=== PATIENT | male | born 1970 | race Caucasian/White ===

== ENCOUNTER 2016-12-11 09:26 | Inpatient (IN) | payer MEDICAID, OTHER ==
[~2016-12-11] VITALS: Ht 185.4 cm; Wt 75.9 kg
[~2016-12-11 09:26] MED LIST: ATEN1TAB38; LORAPOW30; PROZAC; SEROQUEL
[2016-12-11] MEDS ORDERED: SODIUM CHLORIDE 0.9% 1,000 ML IVB ONE (11:44)
[2016-12-11] MEDS ORDERED: PROMETHAZINE HCL 25 MG/ML 1ML IV ONE (11:45)
[2016-12-11 12:19] LABS: Basophils # (auto) 0 uL; Basophils % (auto) 0.2 % (0.0-2.0); Eosinophils # (auto) 0.1 uL; Eosinophils % (auto) 0.4 % (0.0-7.0); Hematocrit 50.5 % (41.0-53.0); Hemoglobin 16.5 g/dL (13.5-17.5); Lymphocytes # (auto) 1.5 uL; Lymphocytes % (auto) 10.1 % (10.0-50.0); Mean Corpuscular Hemoglobin 32.5 pg (28.0-32.0); Mean Corpuscular Hgb Conc. 32.7 g/dL (32.0-36.0); Mean Corpuscular Volume 99.6 fL (80.0-100.0); Mean Platelet Volume 9.7 fL (7.4-10.4); Monocytes # (auto) 0.8 uL; Monocytes % (auto) 5.6 % (0.0-12.0); Neutrophils # (auto) 12.1 uL; Neutrophils % (auto) 83.7 % (37.0-80.0); Platelet Count (auto) 181 10^3/uL (140-450); Red Cell Distribution Width 13.5 % (11.6-16.0); SUSPECT VIEW TRANSMISSION; White Blood Cell 14.5 10^3/uL (4.4-10.8)
[2016-12-11 12:55] LABS: Albumin 4.2 g/dL (3.4-5.0); BUN/Creatinine Ratio 20.9; Bilirubin, Total 4.7 mg/dL (0.2-1.0); Calcium 9.6 mg/dL (8.5-10.1); Magnesium 1.7 mg/dL (1.6-2.6); Potassium 3.6 mmol/L (3.5-5.1); Total Protein 7.9 g/dL (6.4-8.2)
[2016-12-11] MEDS ORDERED: PROMETHAZINE HCL 25 MG/ML 1ML IV PRN (17:00)
[2016-12-11] MEDS ORDERED: LORazepam 0.5 MG TAB PO PRN ×2 (17:00→20:30)
[2016-12-11] MEDS ORDERED: cefTRIAXone 1GM/50ML D5W 50 ML IV ONE (17:00)
[2016-12-11] MEDS ORDERED: MORPHINE SULF INJ 2 MG/ML SYRINGE 1ML IV PRN (17:00)
[2016-12-11] MEDS ORDERED: NITROGLYCERIN 0.4 MG SL TAB SL PRN (17:00)
[2016-12-11] MEDS ORDERED: SODIUM CHLORIDE 0.9% 1,000 ML IV ONE (17:00)
[2016-12-11] MEDS ORDERED: TEMAZEPAM 15 MG CAP PO PRN (17:00)
[2016-12-11] MEDS: FAMOTIDINE (10MG/ML) 2ML VL IV SCH (17:15)
[2016-12-11] MEDS: SODIUM CHLORIDE 0.9% 1,000 ML IV SCH (17:30)
[2016-12-11] MEDS: metroNIDAZOLE 500MG/100ML 100 ML IV SCH ×2 (18:00→23:55)
[2016-12-11] MEDS: MORPHINE SULF INJ 2 MG/ML SYRINGE 1ML IV PRN ×2 (18:04→23:56)
[2016-12-11 18:28] LABS: INR 1.11 (0.9-1.15); Partial Thromboplastin Time 28.6 sec (22.64-33.71); Prothrombin Time 11.4 sec (9.37-12.3)
[2016-12-11] MEDS ORDERED: THIAMINE HCL 100 MG/ML 2ML VIAL IV ONE (20:30)
[2016-12-11] MEDS ORDERED: LORazepam 2MG/ML-1ML VIAL IV PRN (20:30)
[2016-12-11] MEDS ORDERED: chlordiazePOXIDE HCL 25 MG CAP PO PRN (20:30)
[2016-12-11] MEDS ORDERED: PANTOPRAZOLE SODIUM 40 MG/10 ML VIAL IV ONE (20:30)
[2016-12-11 21:24] VITALS: BP 126/75
[2016-12-11 23:26] LABS: Urine Bilirubin Negative (Negative); Urine Blood Negative /uL (Negative); Urine Color Yellow (Yellow); Urine Glucose Normal (Normal); Urine Ketone 1+ (Negative); Urine Mucus FEW (None Seen); Urine Nitrite Negative (Negative); Urine RBC 1 /hpf (0 - 3)
[2016-12-11] MEDS: chlordiazePOXIDE HCL 5 MG CAP PO SCH (23:56)
[2016-12-12] VITALS (7 sets, daily range): BP systolic 116–157; BP diastolic 64–82
[2016-12-12] MEDS: SODIUM CHLORIDE 0.9% 1,000 ML IV SCH ×2 (00:17→12:43)
[2016-12-12] MEDS: FAMOTIDINE (10MG/ML) 2ML VL IV SCH ×2 (05:20→17:27)
[2016-12-12 06:00] LABS: Basophils # (auto) 0 uL; Basophils % (auto) 0.5 % (0.0-2.0); Eosinophils # (auto) 0.4 uL; Eosinophils % (auto) 4.8 % (0.0-7.0); Hematocrit 39.9 % (41.0-53.0); Lymphocytes # (auto) 2.3 uL; Lymphocytes % (auto) 27.5 % (10.0-50.0); Mean Corpuscular Hemoglobin 32.5 pg (28.0-32.0); Mean Corpuscular Hgb Conc. 32.7 g/dL (32.0-36.0); Mean Corpuscular Volume 99.6 fL (80.0-100.0); Mean Platelet Volume 9.4 fL (7.4-10.4); Monocytes # (auto) 0.5 uL; Monocytes % (auto) 6.1 % (0.0-12.0); Neutrophils # (auto) 5.1 uL; Neutrophils % (auto) 61.1 % (37.0-80.0); Platelet Count (auto) 138 10^3/uL (140-450); Red Cell Distribution Width 13.3 % (11.6-16.0); White Blood Cell 8.3 10^3/uL (4.4-10.8)
[2016-12-12] MEDS: metroNIDAZOLE 500MG/100ML 100 ML IV SCH ×4 (06:04→23:37)
[2016-12-12] MEDS: chlordiazePOXIDE HCL 5 MG CAP PO SCH ×4 (06:05→23:38)
[2016-12-12 06:32] LABS: Albumin 3.2 g/dL (3.4-5.0); BUN/Creatinine Ratio 23.2; Calcium 8.2 mg/dL (8.5-10.1); Potassium 3.3 mmol/L (3.5-5.1)
[2016-12-12 06:35] LABS: Bilirubin, Total 2.3 mg/dL (0.2-1.0); Total Protein 5.8 g/dL (6.4-8.2)
[2016-12-12 06:38] LABS: Cholesterol 124 mg/dL (<200); HDL Cholesterol 70 mg/dL (40-59); LDL Cholesterol 52 mg/dL (<100); Triglycerides 93 mg/dL (<150)
[2016-12-12 06:52] LABS: Amylase 45 U/L (25-115)
[2016-12-12] MEDS: MORPHINE SULF INJ 2 MG/ML SYRINGE 1ML IV PRN ×2 (08:36→14:56)
[2016-12-12] MEDS: THIAMINE HCL 100 MG/ML 2ML VIAL IV SCH (09:30)
[2016-12-12] MEDS: cefTRIAXone 1GM/50ML D5W 50 ML IV SCH (09:30)
[2016-12-12] MEDS ORDERED: PANTOPRAZOLE SODIUM 40 MG/10 ML VIAL IV SCH (10:00)
[2016-12-12] MEDS ORDERED: IOHEXOL 300 MG/ML 100ML BOTTLE IJ ONE (13:03)
[2016-12-12] MEDS ORDERED: SOD CHL 0.45% WITH 20MEQ KCL 1,000 ML IV SCH (19:00)
[2016-12-12] MEDS: SOD CHL 0.45% WITH 20MEQ KCL 1,000 ML IV SCH (20:32)
[2016-12-12] MEDS: PANTOPRAZOLE SODIUM 40 MG/10 ML VIAL IV SCH (21:56)
[2016-12-13 05:00] VITALS: BP 115/75
[2016-12-13] MEDS: FAMOTIDINE (10MG/ML) 2ML VL IV SCH (05:13)
[2016-12-13] MEDS: metroNIDAZOLE 500MG/100ML 100 ML IV SCH ×2 (05:23→11:53)
[2016-12-13] MEDS: chlordiazePOXIDE HCL 5 MG CAP PO SCH ×2 (05:23→11:46)
[2016-12-13] MEDS: MORPHINE SULF INJ 2 MG/ML SYRINGE 1ML IV PRN ×2 (05:43→11:48)
[2016-12-13 06:27] LABS: BUN/Creatinine Ratio 9.7; Calcium 8.2 mg/dL (8.5-10.1); Potassium 3.3 mmol/L (3.5-5.1)
[2016-12-13 07:00] VITALS: BP 119/77
[2016-12-13] MEDS ORDERED: SODIUM CHLORIDE LOCK 10 ML ONE (07:35)
[2016-12-13] MEDS ORDERED: LIDOCAINE VISCOUS 2% 15ML UD ONE (07:35)
[2016-12-13] MEDS ORDERED: diphenhdrAMINE HCL 50 MG/1 ML VL ONE (07:36)
[2016-12-13 08:00] VITALS: BP 119/77
[2016-12-13] MEDS: SOD CHL 0.45% WITH 20MEQ KCL 1,000 ML IV SCH (08:20)
[2016-12-13] MEDS: PANTOPRAZOLE SODIUM 40 MG/10 ML VIAL IV SCH (09:21)
[2016-12-13] MEDS: THIAMINE HCL 100 MG/ML 2ML VIAL IV SCH (09:22)
[2016-12-13] MEDS: cefTRIAXone 1GM/50ML D5W 50 ML IV SCH (09:22)
[2016-12-13] MEDS: MIDAZOLAM HCL 5 MG/ML-1ML VIAL ONE ×2 (09:57→10:00)
[2016-12-13] MEDS: fentaNYL CITRATE 100 MCG/2 ML VL ONE ×2 (09:57→10:00)
[2016-12-13 11:29] VITALS: BP 112/86
[2016-12-13 13:46] VITALS: BP 119/77
[2016-12-13] MEDS ORDERED: PANTOPRAZOLE 40 MG TAB PO SCH (22:00)
== END 2016-12-13 14:35 | disposition home or self-care (01) | DRG 241 ==
LOC: ER 09:26 → TELE 09:27 → TELE-WESTW 19:25
PROVIDERS: ADMIT Internal Medicine; ATTEND Internal Medicine Pulmonary Disease
PROC: 0DB68ZX Excision of Stomach, Via Natural or Artificial Opening Endoscopic, Diagnostic (ICD-10-PCS; principal; 2016-12-13 09:53)
DX: K29.90 Gastroduodenitis, unspecified, without bleeding (principal); F10.231 Alcohol dependence with withdrawal delirium; K76.6 Portal hypertension; K70.0 Alcoholic fatty liver; K20.9 Esophagitis, unspecified; I10 Essential (primary) hypertension; D18.09 Hemangioma of other sites; F17.210 Nicotine dependence, cigarettes, uncomplicated; F10.20 Alcohol dependence, uncomplicated; F32.9 Major depressive disorder, single episode, unspecified; Z88.0 Allergy status to penicillin; Z88.7 Allergy status to serum and vaccine; Z87.01 Personal history of pneumonia (recurrent); Z80.8 Family history of malignant neoplasm of other organs or systems; Z80.7 Family history of other malignant neoplasms of lymphoid, hematopoietic and related tissues; Z82.49 Family history of ischemic heart disease and other diseases of the circulatory system
CPT/HCPCS: 36415; 43239; 71020; 74176; 74177; 76705; 80048; 80053; 80061; 81001; 82105; 82150; 82378; 83690; 83735; 84443; 85025; 85610; 85652; 85730; 86141; 87040; 87086; 93005; 96361; 96365; 96375; 96376; C9113; G0434; J0696; J2250; J3490